=== PATIENT | male | born 1990 | race Caucasian/White ===

== ENCOUNTER 2017-04-04 18:18 | Emergency (ER) | payer SELFPAY ==
[~2017-04-04] VITALS: Ht 182.9 cm; Wt 65.9 kg
[2017-04-04 18:28] VITALS: TEMP 98.7
[2017-04-04 21:39] VITALS: BP 134/73; PULSE 94
== END 2017-04-04 21:39 | disposition home or self-care (01) ==
LOC: COL.ER 18:18
DX: D17.23 Benign lipomatous neoplasm of skin and subcutaneous tissue of right leg (principal); F17.210 Nicotine dependence, cigarettes, uncomplicated; F12.90 Cannabis use, unspecified, uncomplicated; Z90.89 Acquired absence of other organs

== ENCOUNTER 2017-04-19 18:13 | Emergency (ER) | payer SELFPAY ==
[~2017-04-19] VITALS: Ht 182.9 cm; Wt 65.9 kg
[2017-04-19 18:16] VITALS: TEMP 98.3
[2017-04-19 19:23] LABS: BASO # 0.1 (0.0-0.2); BASO % 0.4 % (0.0-2.0); EOS # 0.1 (0.0-0.7); EOS % 0.4 % (0-4.0); GRAN # 10.6 (1.4-6.5); GRAN % 81.4 % (42.2-75.2); HEMATOCRIT 42.3 % (42.0-52.0); HEMOGLOBIN 14.8 g/dl (13.5-18.0); LYMPH # 1.3 (1.2-3.4); LYMPH % 10.1 % (20.0-51.0); MEAN CELL VOLUME 88 fl (80.0-100.0); MEAN CORPUSCULAR HEMOGLOBIN 31 pg (27.0-31.0); MEAN CORPUSCULAR HGB CONC 35 g/dl (33.0-37.0); MEAN PLATELET VOLUME 10.7 fl (7.4-10.4); MONO # 0.9 (0.1-0.6); MONO % 7.2 % (1.7-9.3); PLATELET COUNT 197 K/mm3 (130-400); RED BLOOD COUNT 4.81 M/mm3 (4.20-5.60)
[2017-04-19 19:27] LABS: ADJUSTED CALCIUM 9.2 mg/dL (8.4-10.2); ALBUMIN 5.3 gm/dL (3.5-5.0); BILIRUBIN,TOTAL 1.5 mg/dL (0.0-1.0); CALCIUM 10.2 mg/dL (8.4-10.2); CREATININE, serum 0.87 mg/dL (0.66-1.25); TOTAL PROTEIN 8.1 gm/dL (6.4-8.2)
[2017-04-19 21:49] VITALS: BP 145/97; PULSE 107
== END 2017-04-19 21:50 | disposition home or self-care (01) ==
LOC: COL.ER 18:13
PROVIDERS: Emergency Medicine
DX: S00.512A Abrasion of oral cavity, initial encounter (principal); R56.9 Unspecified convulsions; F17.210 Nicotine dependence, cigarettes, uncomplicated; X58.XXXA Exposure to other specified factors, initial encounter
CPT/HCPCS: J1885; J7030

== ENCOUNTER 2017-06-04 17:07 | Emergency (ER) | payer SELFPAY ==
[~2017-06-04] VITALS: Ht 182.9 cm; Wt 63.6 kg
[2017-06-04 17:10] VITALS: BP 136/72; TEMP 98.1
[2017-06-04 18:17] VITALS: PULSE 100
== END 2017-06-04 18:18 | disposition home or self-care (01) ==
LOC: COL.ER 17:07
DX: D17.23 Benign lipomatous neoplasm of skin and subcutaneous tissue of right leg (principal); F12.90 Cannabis use, unspecified, uncomplicated; F17.210 Nicotine dependence, cigarettes, uncomplicated; Z90.5 Acquired absence of kidney; Z98.890 Other specified postprocedural states